=== PATIENT | female | born 1990 | race Caucasian/White ===

== ENCOUNTER 2021-01-16 09:40 | Inpatient (IN) | payer OTHER, SELFPAY ==
--- NOTE | 2021-01-12 11:50 | PCM.HP.BLA ---
History and Physical Date of Admission: 01/16/21 HPI: The patient is a 30 year old female presenting for pre-operative visit. She is scheduled for and bialteral salpingectomy, for previous c/s and sterilization request on 01/16/21. Procedure discussed along with risks, benefits and complications. Other alternatives discussed for management. Consent form signed? Yes. ? ? PAST MEDICAL HISTORY PAST MEDICAL HISTORY Diagnosis Date ? Anemia ? ? Breast disorder ? ? HISTORY OF BREAST LUMP ? Febrile seizure (HCC) AGE 5 ? FRACTURE 2012 ? LEFT HAND ? Left breast lump AGE 13 ? Urinary tract infection, site not specified ? ? Recurrent UTI's ? ? PAST SURGICAL HISTORY PAST SURGICAL HISTORY Procedure Laterality Date ? DELIVERY ONLY ? 10/20/14 ? , low transverse ? DELIVERY ONLY ? 04/03/16 ? , low transverse ? PAST SURGICAL HISTORY OF ? AGE 13 ? LUMP ON LEFT BREAST ? ? ? CURRENT MEDICATIONS Current Outpatient Medications Medication Sig Dispense Refill ? Rfpwnyfh-Wp-Mbm-Fe-FA ( VITAMIN) tab Take 1 tablet by mouth. ? ? ? phenazopyridine (PYRIDIUM) 100 mg tablet Take 1 tablet by mouth three times daily as needed. 9 tablet 0 ? No current facility-administered medications for this visit. ? ? ALLERGIES: Patient has no known allergies. ? PERSONAL HISTORY: SOCIAL HISTORY Social History ? Tobacco Use ? Smoking status: Never Smoker ? Smokeless tobacco: Never Used Vaping Use ? Vaping Use: Never used Substance Use Topics ? Alcohol use: No ? Drug use: No ? FAMILY HISTORY: FAMILY HISTORY FAMILY HISTORY Problem Relation Age of Onset ? No Known Problems Mother ? ? Hypertension Father ? ? Heart Father ? ? Arrhythmia ? No Known Problems Brother ? ? No Known Problems Brother ? ? Heart Maternal Grandmother ? ? Cancer Maternal Grandfather ? ? LUNG CANCER ? Breast Cancer Paternal Grandmother ? ? Alzheimer's Disease Paternal Grandfather ? ? No Known Problems Daughter ? ? No Known Problems Daughter ? ? ? REVIEW OF SYMPTOMS: GENERAL: denies fevers or chills ENDOCRINOLOGY: has not been on steroids Cardiology : denies palpitations or chest pain Respiratory: denies SOB or cough Hematology: denies history of prolonged bleeding or easy bruising or VTE Allergy: Denies history of personal or family history of allergy to anesthesia ? PHYSICAL EXAMINATION: ? VITALS: Blood pressure 120/76, weight 179 lb 9.6 oz (81.5 kg), last menstrual period 04/18/2020, currently . ? GENERAL: The patient is well nourished, well hydrated in no acute distress. , The patient is oriented to time, place, and person. NECK: Supple. No lynphadenopathy, normal thyroid, no thyromegaly. LUNGS: Clear to auscultation bilaterally. no wheezes, rhonchi or rales HEART: Regular rate and rhythm, Normal heart sounds and No murmurs or gallops ABd- soft, nontender, gravid ? ? IMPRESSION: 30 YOF @ Estimated Date of Delivery: 01/23/21 w/ h/o previous c/s, requests sterilization ? PLAN: The risks/benefits/alternatives and personal involved for the planned repeat c/s and bilateral salpingectomy or tubal ligation if technically difficult or unable to perform salpingectomy were reviewed with the patient. Her questions were answered to her satisfaction and she desires to proceed. Consent was signed. I reviewed with her postop instructions and expectations. ? Risks, benefits and alternatives to sterilization have been discussed with the patient. She declines reversible options including LARC. She understands sterilization is permanent, irreversible, risks of failure, regret and ectopic. In addition she understands there are surgical risks as well. Her questions were answered to her satisfaction and consent was signed ? I have reviewed and updated past medical and surgical history, medications and allergies. This H&P was completed in my office on 01/12/21. Assessment & Plan Assessment/Plan (1) Previous delivery affecting : (2) 39 weeks gestation of : (3) Consultation for sterilization:
[2021-01-16] VITALS (14 sets, daily range): BP systolic 101–120; BP diastolic 40–73; PULSE 51–70; RESP 16–18; TEMP 36.3–36.7; O2SAT 96–100; BMI 27.8
[2021-01-16] MEDS: Lactated Ringers 1,000 ML 999 ML IV (10:00)
[2021-01-16 10:18] LABS: Absolute Lymphocyte Count 1.42 X10^3/uL (0.83-4.51); Absolute Neutrophil Count 4.9 X10^3/uL (2.0-7.7); Basophil# 0.03 X10^3/uL; Basophil% 0.4 % (0-1); Eosinophil# 0.06 X10^3/uL; Eosinophils% 0.8 % (0-5); Hematocrit 31.8 % (37-47); Hemoglobin 10.2 g/dL (12.0-15.0); Lymphocyte # 1.42 X10^3/ul (0.83-4.51); Lymphocyte % 19.9 % (19-41); Mean Corp Hgb Conc 32.1 g/dL (32-36); Mean Corpuscular Hgb 27.9 pg (27.0-32.0); Mean Corpuscular Volume 87.1 fL (81-99); Mean Platelet Vol. 10.5 fl (6.2-12.0); Monocyte# 0.67 X10^3/uL; Monocyte% 9.4 % (0-10); NRBC Flagged by Analyzer 0 % (0-5); Neutrophil # 4.88 X10^3/uL (2.7-7.7); Neutrophil % 68.4 % (47-70); Platelet Count 344 K/mm3 (150-450); RBC Distribution Width CV 12.9 % (11.6-14.6); RBC Distribution Width SD 40.7 fl (35.1-43.9); Red Blood Count 3.65 M/mm3 (4.2-5.4); White Blood Count 7.1 K/mm3 (4.4-11.0)
[2021-01-16] MEDS: Acetaminophen 500 MG Tablet 1000 MG PO ×3 (10:35→22:18)
[2021-01-16] MEDS: Lactated Ringers 1,000 ML 150 ML IV (11:01)
[2021-01-16] MEDS: Sodium Citrate/Citric Acid 30 ML UDC PO (11:48)
[2021-01-16] MEDS: Cefazolin 2 GM in 0.9% Normal Saline 100 ML IV (11:56)
--- NOTE | 2021-01-16 12:15 | FALS_PTH ---
PATIENT: TALIA CULVER LOC: [facility] U#:[id number] AGE/SX: 30/F ROOM: [facility]003 RE01/16/[address]: Dr. Khadijah Robetr MD : 1990 BED: 1 DIS: 01/17/2021 SPEC #: [id number] RECD: 01/16/21 15:04 STATUS: URIEL REKath #: [id number] JAVIER: 01/16/21 12:[address]: Khadijah Robert DEPT: SURGICAL PATHOLOGY RECD BY: Annie Coronel ENTERED: 01/17/21 07:17 SP TYPE: FALL TUBES OTHR DR: No Primary Care Phys Tissues: Fallopian tube Procedures: Surgery Specimen Level II HEADER OPERATION: Tubal ligation PRE-OP DIAGNOSIS: Sterilization TISSUE SUBMITTED: Fallopian tubes MICROSCOPIC DIAGNOSIS Bilateral fallopian tubes, salpingectomy: Bilateral fallopian tubes, no pathologic diagnosis. SIMONE:cindy 01/18/2021 MICROSCOPIC DESCRIPTION Slides are reviewed. GROSS DESCRIPTION Received in fixative is one container labeled with the patient's name and designated bilateral fallopian tubes, left suture. The specimen consists of bilateral fallopian tubes including fimbrial ends. The right fallopian tube measures 6.5 cm in length and up to 1 cm in diameter and the left fallopian tube measures 6.5 cm in length and up to 0.9 cm in diameter. Sections reveal unremarkable cut surfaces. General Manager [employer] sections are submitted in two cassettes as follows: 1 - right fallopian tube, 2 - left fallopian tube. / SIMONE:cindy 01/17/21 TC:4 CPT: 47626 x2
--- NOTE | 2021-01-16 12:54 | EX.PCM.OBRPT ---
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 She was prepped and draped in the dorsal supine position with a leftward tilt. A Pfannenstiel skin incision was made approximately 2 cm above the symphysis pubis and carried through to underlying layer fascia with the scalpel. The fascia was incised incised in the midline and extended laterally with the Sheppard scissors. The rectus muscles were in the midline and the peritoneum was entered bluntly. The peritoneal incision was stretched and the bladder blade was placed. The uterine incision was made in a low transverse fashion with the scalpel and extended superiorly and inferiorly with blunt dissection. The amniotic membranes were ruptured bluntly and clear amniotic fluid returned. The 's head was brought to the incision in the flexed position and delivered without difficulty. The remainder of the infant was delivered with gentle traction and fundal pressure in the standard fashion. The mouth and nares were bulb suctioned. The cord was clamped and cut as the was stimulated. Cord clamping was delayed. The was handed off to the waiting nursing staff. The placenta was delivered with fundal massage and gentle traction in the standard fashion. The uterus was exteriorized and cleared of all clots and debris. The cervix was dilated with a ring forcep. The uterine incision was closed with #1 Vicryl in a running locked fashion. A second layer of the same suture was used in an imbricating fashion. The incision was examined and was found to be hemostatic. The left fallopian tube was identified and followed out to the fimbriated end. The LigaSure device was used to clamp, seal and transect the antimesenteric portion of the tube to the cornual insertion of the tube. The cornual insertion of the tube was clamped, sealed and transected with the LigaSure device. Hemostasis was noted. The same procedure was performed on the contralateral side. Hemostasis was noted. The uterus was placed back into the peritoneal cavity and hemostasis was again confirmed. The rectus muscles were examined and any bleeding was Bovie cauterized. The parietal peritoneum and rectus muscles were closed en bloc with an 0 Vicryl running suture. The surgical teams outer gloves were then changed. The rectus fascia was examined and any bleeding was Bovie cauterized and the rectus fascia was closed with 1 Vicryl suture in a running standard fashion. The subcutaneous tissue was examining and any bleeding was Bovie cauterized. The subcutaneous tissue was reapproximated with 3-0 Vicryl suture. The skin was closed in a subcuticular fashion by the SHIP LINER with me present in the labor and delivery suite. I performed the remainder of the procedure with assistance. All sponge, lap, and needle counts were correct. The patient was taken to her room for recovery in a stable condition. Presentation: Positive for Vertex Amniotic Membrane Rupture Type: Artificial Amniotic Fluid Description: Clear Placental Delivery Description: Expressed Placenta Disposition: [facility] Specimen(s) Sent to Pathology: bilateral fallopian tubes Cord Vessel Description: 3 Vessels Cord Entanglement: Around neck x 1, loose Nuchal Cord Compression: Without compression A Gender: Female (Revel) (1 minute): 8 (5 minute): 9 Delayed Cord Clamping: Yes Complications Complications: none Admit VTE Documentation VTE Present on Admission: No VTE Mechan Device Prophylaxis: SCD's VTE Pharm Prophylaxis Ordered: No Reason Prophylaxis Not Ordered: Procedure Not Indicated
[2021-01-16] MEDS: Ketorolac 30 MG/ML Syringe IV ×2 (13:30→20:03)
[2021-01-16] MEDS: Oxytocin 30 units/NS 500 ml 30 UNITS/500 ML IV.SOLN 167 UNITS IV (13:45)
[2021-01-16 15:06] LABS: Pathology Specimen OB SEE PATHOLOGY REPORT
[2021-01-16] MEDS: Lactated Ringers 1,000 ML 100 ML IV (16:36)
[2021-01-16] MEDS: HYDROmorphone 0.5 MG/0.5 ML SYRINGE IV (22:19)
[2021-01-17 00:20] VITALS: BP 117/38; PULSE 58; RESP 18; O2SAT 100
[2021-01-17] MEDS: Ketorolac 30 MG/ML Syringe IV ×2 (01:26→07:22)
[2021-01-17 04:15] VITALS: BP 110/54; PULSE 57; RESP 18; O2SAT 100
[2021-01-17] MEDS: Acetaminophen 500 MG Tablet 1000 MG PO ×2 (04:35→10:04)
[2021-01-17] MEDS: HYDROmorphone 0.5 MG/0.5 ML SYRINGE IV (05:45)
[2021-01-17 06:00] LABS: Hematocrit 24.2 % (37-47); Hemoglobin 7.7 g/dL (12.0-15.0); Mean Corp Hgb Conc 31.8 g/dL (32-36); Mean Corpuscular Hgb 27.9 pg (27.0-32.0); Mean Corpuscular Volume 87.7 fL (81-99); Mean Platelet Vol. 10.1 fl (6.2-12.0); Platelet Count 230 K/mm3 (150-450); RBC Distribution Width SD 41.1 fl (35.1-43.9); Red Blood Count 2.76 M/mm3 (4.2-5.4); White Blood Count 8.7 K/mm3 (4.4-11.0)
[2021-01-17] MEDS: 0.9% Saline Lock 10 ML Syringe IV (07:22)
[2021-01-17 07:48] VITALS: BP 120/60; PULSE 64; RESP 18; TEMP 36.5; O2SAT 100
--- NOTE | 2021-01-17 08:42 | PCM.PN.BLA ---
Physical Exam Const alert General Appearance: cooperative GI GI Narrative: soft, moderate distention, fundus firm, appropriately tender. Abdominal bandage clean dry and intact Assessment & Plan Assessment/Plan (1) Status post repeat low transverse section: PLAN: Post operative day #1 status post repeat section and bilateral salpingectomy. Patient is doing well. Chronic antepartum anemia with acute blood loss anemia superimposed. Repeat CBC at lunchtime today. Patient would like to go home later and if hemoglobin is stable will allow that. If it trends down, discussed with the patient I would recommend staying till tomorrow and repeating it in the morning. Patient is comfortable with this plan. is breast-feeding and doing well.
[2021-01-17] MEDS: Senna/Docusate Sodium 1 Tablet PO (10:04)
[2021-01-17] MEDS: oxyCODONE 5 MG Tablet PO (13:04)
[2021-01-17 13:22] LABS: Hematocrit 24.2 % (37-47); Hemoglobin 7.8 g/dL (12.0-15.0); Mean Corp Hgb Conc 32.2 g/dL (32-36); Mean Corpuscular Volume 86.7 fL (81-99); Mean Platelet Vol. 9.9 fl (6.2-12.0); Platelet Count 254 K/mm3 (150-450); RBC Distribution Width CV 12.9 % (11.6-14.6); RBC Distribution Width SD 40.9 fl (35.1-43.9); Red Blood Count 2.79 M/mm3 (4.2-5.4); White Blood Count 9.9 K/mm3 (4.4-11.0)
[2021-01-17] MEDS: Ibuprofen 600 MG Tablet PO (13:46)
[2021-01-17 14:08] VITALS: BP 117/73; PULSE 58; RESP 18; TEMP 36.4; O2SAT 99
--- NOTE | 2021-01-17 15:21 | DS.PCM_ITS ---
Providers Date of Admission: 01/16/21 Primary Care Physician: No Primary Care Phys Reason For Visit: REPEAT C SECTION/DELIVERED Diagnosis Discharge Diagnosis (1) Status post repeat low transverse section: Status: Acute Code(s): Z98.891 - History of uterine scar from previous surgery Medications at Discharge Home Medications Prenatabs FA 1 tab PO DAILY 09/30/14 ferrous sulfate [FeroSul] 325 mg PO QODAY 60 Days #30 tab 01/17/21 ibuprofen 600 mg PO Q6H PRN PRN 60 Days #60 tablet 01/17/21 oxycodone 5 mg PO Q6H PRN PRN 5 Days #20 tablet 01/17/21 Hospital Course Operations - (Repeat Low Transverse Delivery with bilateral salpingectomy (tubal sterilization)) Procedures None Summary of Care Provided Hospital Course: Patient was admitted for repeat delivery with bilateral salpingectomy. This was performed on 01/16 without difficulty. By POD #1 she was doing well and desired d/c home with routing instructions and prescriptions. She was tolerating her anemia well. Weight / BMI Weight Weight: 80.739 kg Body Mass Index (BMI) 27.8 ABG / Lab / Microbiology Data Result Diagrams: 01/17/21 13:15 Laboratory: Laboratory Results - last 24 hr 01/16/21 01/17/21 01/17/21 15:45 05:50 13:15 WBC 8.7 9.9 RBC 2.76 L 2.79 L Hgb 7.7 L 7.8 L Hct 24.2 L 24.2 L MCV 87.7 86.7 MCH 27.9 28.0 MCHC 31.8 L 32.2 RDW Std Deviation 41.1 40.9 RDW Coeff of Chelsi 13.0 12.9 Plt Count 230 254 MPV 10.1 9.9 Screen NEGATIVE Baby's Blood Type A POSITIVE Baby's CHERELLE NEGATIVE D/C Instructions Discharge Diet: No restrictions May resume sexual activity in: 4-6 weeks Lifting Restrictions: 20 pounds Additional Activity Instructions: Nothing in the vagina for 4-6 weeks. You may return to work/school in 6 weeks. Call your doctor if your incision/area has: Continuous Slow Oozing, Sudden Increased Bleeding, Increased Pain/ Swelling, Increased Redness and Foul Sme lling Discharge Call your doctor if you observe: Fever of 101 or Higher and Using more than 1 pad per hour (for 2 hours) Suture Line Care: Avoid Pulling/Pushing and Avoid Pinching/Bending Cleanse incision/area with: Keep Dressing Clean & Dry Please Follow Up With: Khadijah Robert MD When: Call to make an appointment for an incision check in 1-2 [phone]. You will need a post check in 6 weeks. Meaningful Use Info Meaningful Use Diagnoses (Choose all that apply): None applicable Discharge Plan Admission Admit Date/Time: 01/16/21 09:40 Primary Reason for Your Visit: Attending Provider: Khadijah Robert Primary Care Provider: Care Physician,No Primary Instructions Patient Instructions: After a Discharge Orders/Prescriptions Prescriptions: New ferrous sulfate [FeroSul] 325 MG tablet 325 mg PO QODAY 60 Days Qty: 30 RF: 1 ibuprofen [ibuprofen] 600 MG tablet 600 mg PO Q6H PRN PRN (Reason: pain (scale score 4-6)) 60 Days Qty: 60 RF: 1 oxycodone 5 mg tablet 5 mg PO Q6H PRN PRN (Reason: severe pain) 5 Days Qty: 20 RF: 0 Continued Prenatabs FA 1 TABLET tablet 1 tab PO DAILY RF: 0 Referrals / Follow Up: Care Physician,No Primary [Primary Care Provider] - Disposition Disposition (needs filled in before D/C Order can be placed): Home, Self Care
== END 2021-01-17 16:30 | disposition home or self-care (01) | DRG 785 ==
PROVIDERS: Admitting Provider Obstetrics & Gynecology; Referring Provider Obstetrics & Gynecology; Visit Provider Obstetrics & Gynecology
PROC: 10D00Z1 Extraction of Products of Conception, Low, Open Approach (ICD-10-PCS; CPT 59514; principal; 2021-01-16 11:45)
DX: O34.211 Maternal care for low transverse scar from previous cesarean delivery (principal); Z3A.39 39 weeks gestation of pregnancy; Z37.0 Single live birth; Z30.2 Encounter for sterilization; O69.81X0 Labor and delivery complicated by cord around neck, without compression, not applicable or unspecified
CPT/HCPCS: 85025; 85027; 85461; 86850; 86900; 86901; 88302; 90384; 99218; 99251; J7120; A4216; G0378; G0463; J2405; J2790